=== PATIENT | female | born 1975 | race Caucasian/White ===

== ENCOUNTER 2017-05-31 15:53 | Emergency (ER) | payer OTHER ==
[2017-05-31 16:05] VITALS: RESP 16; O2SAT 96
--- NOTE | 2017-05-31 16:27 | EDPHY ---
H & P <Rosalba,Collins Powell - Last Filed: 05/31/17 18:54> Stated Complaint: generalized abd distress/diarrhea/nausea - Personal History LMP (Females 10-55): Now Current Tetanus/Diphtheria Vaccine: Yes - Medical/Surgical History Hx Asthma: No Hx Chronic Respiratory Disease: No Hx Diabetes: No Hx Cardiac Disease: No Hx Renal Disease: No Hx Cirrhosis: No Hx Alcoholism: No Hx HIV/AIDS: No Hx Splenectomy or Spleen Trauma: No Other PMH: brain tumor/craniotomy - Social History Smoking Status: Never smoked <Mary Anne Ram - Last Filed: 06/01/17 08:10> Time Seen by Provider: 05/31/17 16:12 HPI/ROS: CHIEF COMPLAINT: Right upper quadrant abdominal pain postprandial HISTORY OF PRESENT ILLNESS: 41-year-old female with no history of abdominal surgeries complaining of postprandial right upper quadrant pain which started shortly after eating macaroni and cheese and steak at 1:00 p.m. today. Positive nausea. No vomiting. She notes similar postprandial pain the past 1 week. No radiation. No hematemesis. No melena or hematochezia. No chest pain. No dyspnea. No cough. No URI symptoms. No UTI symptoms. Is currently on her menstrual period. PRIMARY CARE PROVIDER: Dr. Shanice Churchill REVIEW OF SYSTEMS: A ten point review of systems was performed and is negative with the exception of the items mentioned in the HPI PAST MEDICAL & SURGICAL HISTORY: No history of abdominal surgeries SOCIAL HISTORY: Nonsmoker PHYSICAL EXAM (Prior to examination, patient consented to physical exam, hands were washed and my usual and customary physical exam procedures followed) 1) GENERAL: Well-developed, well-nourished, alert and oriented. Appears to be in no acute distress. 2) HEAD: Normocephalic, atraumatic 3) HEENT: Pupils equal, round, reactive to light bilaterally. Sclera anicteric. 4) NECK: Full range of motion, no meningeal signs. 5) LUNGS: Clear auscultation bilaterally, no wheezes, no rhonchi, no retractions. 6) HEART: Regular rate and rhythm, no murmur, no heave, no gallop. 7) ABDOMEN: No guarding, positive Engel's negative McBurney's s, negative Rovsing's, negative peritoneal sign, 8) MUSCULOSKELETAL: Moving all extremities, no focal areas of tenderness, no obvious trauma. No peripheral edema or discoloration. 9) BACK: No CVA tenderness. 10) SKIN: No rash, no petechiae. 11) Psychiatric: Patient is oriented X 3, there is no agitation. DIFFERENTIAL DIAGNOSIS: In no particular order, including but not limited to biliary colic, cholecystitis, peptic ulcer disease, pancreatitis, and gastroenteritis. This is a partial list of diagnoses considered. These considerations are based on history, physical exam, past history and reassessment. (Mary Anne Ram) Constitutional: Initial Vital Signs Temperature (C) 36.6 C 05/31/17 16:02 Heart Rate 50 L 05/31/17 16:02 Respiratory Rate 16 05/31/17 16:02 Blood Pressure 101/57 L 05/31/17 16:02 O2 Sat (%) 96 05/31/17 16:02 O2 Delivery Mode Room Air Allergies/Adverse Reactions: No Known Allergies Allergy (Unverified 05/31/17 16:01) Home Medications: Medication Instructions Recorded LaMICtal 05/31/17 Sertraline HCl 05/31/17 Medical Decision Making <Collins Navarrete - Last Filed: 05/31/17 18:54> <Mary Anne Ram - Last Filed: 06/01/17 08:10> ED Course/Re-evaluation: 18:[address] Morin, radiologist. CT abdomen negative, no inflammation, no masses. Incidental pulmonary nodule discovered. The patient will be discharged home in good condition and follow up with primary care. She will follow up in [address] of her lung. Return precautions discussed. The patient is comfortable with this plan. (Collins Navarrete) 6 pm: Imaging results of the ultrasound were discussed with the patient. She noted have pancreatic head prominence with normal lipase. Discussed the case with Dr. Collins Navarrete in the ER. Plan is CT imaging which Dr. Navarrete will follow up on. (Mary Anne Ram) - Data Points Laboratory Results: Laboratory Results 05/31/17 16:25 05/31/17 16:25 Medications Given: Discontinued Medications Sodium Chloride (Ns) 1,000 mls @ 0 mls/hr IV ONCE ONE PRN Reason: Wide Open Stop: 05/31/17 16:35 Last Admin: 05/31/17 16:34 Dose: 1,000 mls Departure <Collins Navarrete - Last Filed: 05/31/17 18:54> <Mary Anne Ram - Last Filed: 06/01/17 08:10> - Departure Disposition: Home, Routine, Self-Care Clinical Impression: Abdominal pain Condition: Good Instructions: Abdominal Pain (ED) Additional Instructions: 1. Follow up with your primary care provider for symptoms unresolved. 2. We did find an incidental lung nodule on your CT scan. Follow up in 6 months for a repeat CT to evaluate this. 3. Return to the emergency department for any worsening of condition. Referrals: Shanice Churchill MD [Primary Care Provider] - As per Instructions Report Scribed for: Collins Navarrete Report Scribed by: Naima Carroll Date of Report: 05/31/17 Time of Report: 18:57 <Collins Navarrete - Last Filed: 05/31/17 18:54>
[2017-05-31 16:33] LABS: % IMMATURE GRANULYOCYTES 0.5 % (0.0-1.1); ABSOLUTE IMMATURE GRANULOCYTES 0.04 10^3/uL (0.00-0.10); ADD DIFF? NO; ADD MORPH? NO; ADD SCAN? NO; ATYPICAL LYMPHOCYTE FLAG 0 (0-99); FRAGMENT RBC FLAG 20 (0-99); HEMATOCRIT 44.7 % (38.0-47.0); HEMOGLOBIN 14.8 g/dL (12.6-16.3); LEFT SHIFT FLG 0 (0-99); LIPEMIA HEMOLYSIS FLAG 80 (0-99); MEAN CELL HEMOGLOBIN 27.6 pg (27.9-34.1); MEAN CELL HEMOGLOBIN CONCENTR. 33.1 g/dL (32.4-36.7); MEAN CELL VOLUME 83.4 fL (81.5-99.8); MEAN PLATELET VOLUME 9.7 fL (8.7-11.7); PLATELET CLUMPS FLAG 0 (0-99); PLATELET COUNT 649 10^3/uL (150-400); RED BLOOD CELL COUNT 5.36 10^6/uL (4.18-5.33); RED CELL DISTRIBUTION WIDTH 15.2 % (11.5-15.2)
[2017-05-31 16:34] LABS: COLOR YELLOW; LEUKOCYTE ESTERASE,URINE NEGATIVE (NEGATIVE); NITRITE,URINE NEGATIVE (NEGATIVE)
[2017-05-31] MEDS ORDERED: NS 1,000 ML IV ONE (16:34)
[2017-05-31 16:41] LABS: MUCUS TRACE /lpf (NONE-1+)
[2017-05-31 16:45] LABS: ALANINE AMINOTRANSFERASE 25 IU/L (9-52); ALBUMIN 4.3 g/dL (3.5-5.0); ALKALINE PHOSPHATASE 41 IU/L (38-126); ANION GAP 11 mEq/L (8-16); ASPARTATE AMINOTRANSFERASE 15 IU/L (14-46); BILIRUBIN,TOTAL 0.6 mg/dL (0.1-1.4); BILIRUBIN-CONJUGATED 0.3 mg/dL (0.0-0.5); BILIRUBIN-UNCONJUGATED 0.3 mg/dL (0.0-1.1); CALCIUM 9.2 mg/dL (8.5-10.4); CARBON DIOXIDE 22 mEq/l (22-31); CHLORIDE 108 mEq/L (97-110); CREATININE 0.9 mg/dL (0.6-1.0); GLOMERULAR FILTRATION RATE > 60; GLUCOSE 135 mg/dL (70-100); POTASSIUM 4.2 mEq/L (3.5-5.2); SODIUM 141 mEq/L (134-144); TOTAL PROTEIN 6.7 g/dL (6.3-8.2)
[2017-05-31] MEDS ORDERED: IOPAMIDOL (ISOVUE-300) 100 ML BTL ONE (17:38)
[2017-05-31 19:10] VITALS: BP 111/60; PULSE 43; TEMP 98.2
== END 2017-05-31 19:10 | disposition home or self-care (01) ==
DX: R10.9 Unspecified abdominal pain (principal); R19.7 Diarrhea, unspecified
CPT/HCPCS: Q9967